=== PATIENT | female | born 1980 | race African-American/Black ===

== ENCOUNTER 2016-12-23 12:03 | Emergency (ER) | payer OTHER ==
[~2016-12-23] VITALS: Ht 182.9 cm; Wt 78.9 kg
[2016-12-23 12:05] VITALS: Ht 182.9 cm; Wt 78.9 kg
--- NOTE | 2016-12-23 13:34 | ERD ---
ER Documentation Chief Complaint Date/Time DATE: 12/23/16 TIME: 13:32 Chief Complaint 11 weeks with spotting HPI This is a 36-year-old female who is here because she wants to see if she is still . The patient states that she had a miscarriage on November 27 at 8 weeks. Patient saw her glass inspector as follow-up. Patient says she is having some mild pelvic cramps and is not sure if she still and has retained products of conception or this is just her normal menstrual cycle about to start again. She is not having any vaginal bleeding and has not had any bleeding for the past month. No nausea no breast pain or headache no dysuria discharge. ROS All systems reviewed and are negative except as per history of present illness. FmHx Family History: No coronary disease Physical Exam Vitals Vital Signs Date Time Temp Pulse Resp B/P Pulse Ox O2 Delivery O2 Flow Rate FiO2 12/23/16 12:05 97.7 71 18 136/89 99 Physical Exam Const: Well-developed, well-nourished Head: Atraumatic, normocephalic Eyes: Normal Conjunctiva, PERRLA, EOMI, normal sclera, no nystagmus ENT: Normal External Ears, Nose and Mouth, moist mucus membranes. Neck: Full range of motion. No meningismus, no lymphadenopathy. Resp: Clear to auscultation bilaterally, no wheezing, rhonchi, rales Cardio: Regular rate and rhythm, no murmurs, S1 S2 present Abd: Soft, non tender x 4, non distended. Normal bowel sounds, no guarding or rebound, no pulsitile abdominal masses or bruits Skin: No petechiae or rashes, no ecchymosis , no maculopapular rash Back: No midline or flank tenderness Ext: No cyanosis, or edema, FROM x 4, normal inspection, neurovascularly intact x 4 Neur: Awake and alert, STR 5/5 x 4, sensation intact x 4, no focal findings, cerebellum intact Psych: Normal Mood and Affect Procedures/MDM Patient has a negative urine test here ensuring her hCG is less than 20-25. Told her to follow with her glass inspector as she is not anymore. Her hCG levels have declined since her miscarriage Departure Diagnosis: Primary Impression: Pelvic pain Condition: Stable Patient Instructions: Pelvic Pain, Unknown Cause VERONICA HATFIELD DO Dec 23, 2016 13:34
== END 2016-12-23 13:47 | disposition home or self-care (01) ==
LOC: FTE 12:03
DX: R10.2 Pelvic and perineal pain (principal)
CPT/HCPCS: 99282

== ENCOUNTER 2018-01-25 13:23 | Emergency (ER) | END 2018-01-25 14:34 | disposition home or self-care (01) ==